=== PATIENT | female | born 1975 | race Caucasian/White ===

== ENCOUNTER → 2021-03-05 | Outpatient (CLI) | payer OTHER ==
--- NOTE | 2021-03-05 13:40 | RAD ---
EXAM: Dual modality PET-CT Scan DATE: 03/05/2021 RADIOPHARMACEUTICAL: 12.95 mCi F-18 fluorodeoxyglucose (FDG) IV. CLINICAL HISTORY: Breast cancer staging. COMPARISON: There are no comparison images available. TECHNIQUE: Approximately 45 minutes after tracer administration, routine, attenuation-corrected Posit kenneth Emission Tomography (PET) images were obtained from the level of the base of the skull through th e level of the mid thighs. Tomographic reconstructions are reviewed in coronal, transaxial and sagitt al planes. Non-contrast CT imaging was performed for attenuation correction and localization purpose s only. These images do not constitute a diagnostic-quality CT examination and were not used to diag nose disease independently of the PET images. The blood glucose level was 104 mg/dL at the time of FDG administration. *One or more of the following individualized dose reduction techniques were utilized for this examina tion: 1. Automated exposure control. 2. Adjustment of the mA and/or kV according to patient size. 3. Use of iterative reconstruction technique. FINDINGS: There is intense radiotracer activity with a maximum SUV of 14.7 associated with right supr aclavicular lymphadenopathy. There is a conglomerate of lymph nodes in this distribution measuring ap proximately 5.3 cm in maximum dimension. There is also intense greater tracer activity within maximum SUV of 10.1 within enlarged right internal mammary lymph nodes, a conglomerate of which measure 2.6 cm in maximum dimension. There is intense radiotracer activity within enlarged anterior mediastinal l ymph nodes measuring 2.1 cm with a maximum SUV of 8.7. There is increased radiotracer activity with a maximum SUV of 7.1 associated with a pleural-based nod ule within the anterior medial right middle lobe measuring 1.6 cm. There is increased retained tracer activity within maximum SUV of 4.0 cm within a dominant right subpectoral lymph node measuring 1.1 c m. There is increased retained tracer activity within maximum SUV of 3.1 with a dominant right axilla ry lymph node measuring 1.9 cm. There is increased radiotracer activity within multiple right inferio r posterior cervical chain lymph nodes. These are less than 1 cm in size and demonstrate a maximum JONES V of 5.2. There is increased retained tracer activity within maximum SUV of 3.7 within enlarged right paratracheal lymph node measuring 1.2 cm in maximum dimension. There is no abnormal regional tracer activity within the abdomen or pelvis or involving the osseous structures. The CT portion of the exam demonstrates right supraclavicular, internal mammary and subpectoral lymph adenopathy. For reference purposes, there is a lymph node conglomerate within the right suprahilar sp asha measuring approximately 5.3 cm transaxially. There is conglomerate internal mammary lymphadenopat hy measuring approximately 2.6 cm and maximum transaxial dimension. The largest subpectoral lymph nod e on the right measures 11 mm. There is a prominent right axillary lymph node measuring 1.9 cm. There is also stranding within the anterior mediastinum likely due to metastatic lymphadenopathy. No hilar lymphadenopathy is seen. There postoperative changes involving the right breast and there ar e bilateral breast implants. There is no pneumothorax or pleural effusion. There is nonspecific groun dglass opacity within both lungs likely due to the combination of atelectasis and mild air trapping. There is a soft tissue nodule within the anterior inferior right middle lobe abutting the pleura, jair suring 2.2 cm. No hepatic lesion is seen. The gallbladder, pancreas, spleen, adrenal glands and kidneys are unremark able. There is no evidence of bowel obstruction. The uterus and bladder are unremarkable. There is no retroperitoneal or mesenteric lymphadenopathy. There are few small sclerotic lesions within the axia l and appendicular skeleton, the appearance of which favors bone islands. The visualized portions of the brain are unremarkable. IMPRESSION: 1. Radiotracer avid metastatic lymphadenopathy involving the right supraclavicular space, inferior ri ght posterior cervical chain, right subpectoral and right axillary and right internal mammary distrib utions, high right paratracheal region and anterior mediastinum. This is associated with maximum SUVs described in detail above. The highest measurable SUV is 14.7 associated with the aforementioned con glomerate supraclavicular lymphadenopathy. 2. 1.6 cm pleural-based nodule along the anterior medial right middle lobe with an SUV of 7.1. This l ikely a metastatic pleural-based pulmonary nodule or lymph node. 3. Findings consistent with right breast conservation therapy and bilateral breast implant placement. No significant abnormal tracer activity is seen within either breast. Correlate with mammography and sonography findings. 4. No abnormal radiotracer activity within the abdomen or pelvis or within the osseous structures. Electronically signed by: Lindsay Bernabe MD (03/05/2021 1:38 PM) [id number]
== END ==
LOC: PETSC 10:01
PROVIDERS: ATTEND Family Medicine
DX: C77.0 Secondary and unspecified malignant neoplasm of lymph nodes of head, face and neck (principal); R91.1 Solitary pulmonary nodule
CPT/HCPCS: 78815; A9552

== ENCOUNTER → 2021-11-29 | Outpatient (CLI) | payer OTHER | LOC: CT 11:15 | PROVIDERS: ATTEND Radiology Radiation Oncology | DX: C79.31 Secondary malignant neoplasm of brain (principal); C50.211 Malignant neoplasm of upper-inner quadrant of right female breast | CPT/HCPCS: 76380 ==

== ENCOUNTER → 2021-12-15 | Outpatient (CLI) | payer OTHER | LOC: CT 12:06 | PROVIDERS: ATTEND Radiology Radiation Oncology | DX: C50.211 Malignant neoplasm of upper-inner quadrant of right female breast (principal) | CPT/HCPCS: 76380 ==